=== PATIENT | female | born 1975 | race Caucasian/White ===

== ENCOUNTER 2024-08-24 18:58 | Emergency (ER) | payer OTHER ==
[~2024-08-24] VITALS: Ht 152.4 cm; Wt 86.2 kg
[2024-08-24 19:01] VITALS: BP 134/110; TEMP 98.1
[2024-08-24] MEDS ORDERED: AZIT250T13 PO (19:57)
[2024-08-24 20:31] VITALS: O2SAT 100
== END 2024-08-24 20:32 | disposition home or self-care (01) ==
LOC: ER 19:04
DX: L50.9 Urticaria, unspecified (principal); T36.0X5A Adverse effect of penicillins, initial encounter; Z88.0 Allergy status to penicillin; Z88.2 Allergy status to sulfonamides; Y92.89 Other specified places as the place of occurrence of the external cause